=== PATIENT | female | born 1970 | race Caucasian/White ===

== ENCOUNTER → 2017-10-25 | Outpatient (CLI) | payer BC ==
--- NOTE | 2017-10-25 15:37 | MM ---
Reason for exam: additional evaluation requested from prior study. Last mammogram was performed 1 year and 8 months ago. Physical Findings: Nurse did not find any significant physical abnormalities on exam. MG Diagnostic Mammo w CAD FABRIZIO Bilateral CC and MLO view(s) were taken. Prior study comparison: February 11, 2016, bilateral MG screening mammo w CAD. December 16, 2014, bilateral MG screening mammo w CAD. The breast tissue is heterogeneously dense. This may lower the sensitivity of mammography. No suspicious abnormality. No significant new findings when compared with previous films. These results were verbally communicated with the patient and result sheet given to the patient on 10/25/17. ASSESSMENT: Negative, BI-RAD 1 RECOMMENDATION: Routine screening mammogram of both breasts in 1 year. Manage patient on a clinical basis.
--- NOTE | 2017-10-25 15:39 | USB ---
Reason for exam: clinical finding. US Breast RT Right complete breast ultrasound includes all four quadrants, the retroareolar region and axilla. Finding demonstrates no cystic or solid lesion seen. No suspicious sonographic finding. Dense tissue throughout. These results were verbally communicated with the patient and result sheet given to the patient on 10/25/17. ASSESSMENT: Negative, BI-RAD 1 RECOMMENDATION: Routine screening mammogram of both breasts in 1 year.
== END | disposition home or self-care (01) ==
LOC: RADMAMWWP 07:34
PROVIDERS: ATTEND Family Medicine
DX: N64.4 Mastodynia (principal)
CPT/HCPCS: 77066

== ENCOUNTER 2018-10-10 14:41 | Emergency (ER) | payer OTHER, BC ==
[2018-10-10] MEDS ORDERED: FAMOTIDINE 20 MG/2 ML VIAL IV STA (14:45)
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
[2018-10-10] MEDS: RACEPINEPHRINE 2.25% NEB 0.5 ML NEBU INHALATION STA ×2 (15:07→15:10)
[2018-10-10 15:14] VITALS: PULSE 65
[2018-10-10] MEDS ORDERED: SODIUM CHLORIDE 0.9% 1,000 ML IV ONE (15:26)
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
[2018-10-10 18:47] VITALS: BP 99/72; RESP 18
== END 2018-10-10 18:54 | disposition home or self-care (01) ==
LOC: EC 14:41
DX: T78.2XXA Anaphylactic shock, unspecified, initial encounter (principal); E06.3 Autoimmune thyroiditis; Z79.890 Hormone replacement therapy; Z79.3 Long term (current) use of hormonal contraceptives; Z91.030 Bee allergy status; Z88.8 Allergy status to other drugs, medicaments and biological substances; Z88.1 Allergy status to other antibiotic agents; Z88.2 Allergy status to sulfonamides
CPT/HCPCS: 71045; 93005; 94640; 96361; 96374; 99284

== ENCOUNTER → 2018-11-15 | Outpatient (CLI) | payer BC ==
--- NOTE | 2018-11-16 09:22 | MM ---
Reason for exam: screening (asymptomatic). Last mammogram was performed 1 year and 1 month ago. Physical Findings: A clinical breast exam by your physician is recommended on an annual basis and results should be correlated with mammographic findings. MG Screening Mammo w CAD Bilateral CC and MLO view(s) were taken. Prior study comparison: October 25, 2017, bilateral MG diagnostic mammo w CAD F[facility]IO. February 11, 2016, bilateral MG screening mammo w CAD. The breast tissue is heterogeneously dense. This may lower the sensitivity of mammography. There is no discrete abnormality. No significant changes when compared with prior studies. ASSESSMENT: Negative, BI-RAD 1 RECOMMENDATION: Routine screening mammogram of both breasts in 1 year.
== END | disposition home or self-care (01) ==
LOC: RADMAMWWP 07:48
PROVIDERS: ATTEND Family Medicine
DX: Z12.31 Encounter for screening mammogram for malignant neoplasm of breast (principal)
CPT/HCPCS: 77067

== ENCOUNTER 2019-03-09 05:41 | Emergency (ER) | payer BC ==
[2019-03-09 05:47] VITALS: RESP 18
[2019-03-09] MEDS ORDERED: SODIUM CHLORIDE 0.9% 1,000 ML IV STA ×2 (06:09)
[2019-03-09] MEDS ORDERED: ONDANSETRON 4 MG/2 ML VIAL IVP STA (06:18)
[2019-03-09] MEDS ORDERED: KETOROLAC 30 MG/ML 1 ML VIAL IVP STA (06:18)
[2019-03-09] MEDS ORDERED: HYDROmorphone 1 MG/ML 1 ML SYRINGE IVP STA (06:18)
[2019-03-09 06:21] LABS: Basophils % (A) 1 %; Eosinophils # (A) 0.1 k/uL (0-0.7); Eosinophils % (A) 1 %; HCT 37.4 % (34.0-46.0); HGB 12.6 gm/dL (11.4-16.0); Lymphocytes # (A) 1.6 k/uL (1.0-4.8); Lymphocytes % (A) 40 %; MCH 28.2 pg (25.0-35.0); MCHC 33.6 g/dL (31.0-37.0); Mean Platelet Volume 7.2; Monocytes # (A) 0.3 k/uL (0-1.0); Monocytes % (A) 7 %; Neutrophils # (A) 1.9 k/uL (1.3-7.7); Neutrophils % (A) 49 %; Platelet Count 205 k/uL (150-450); RBC 4.45 m/uL (3.80-5.40); RDW 12.5 % (11.5-15.5); WBC 3.9 k/uL (3.8-10.6)
[2019-03-09 06:22] LABS: Appearance,Urine Clear (Clear); Bacteria,Urine Occasional /hpf; Bilirubin,Urine Negative (Negative); Blood,Urine Trace (Negative); Color,Urine Yellow; Glucose,Urine (UA) Negative (Negative); Ketones,Urine Negative (Negative); Leukocyte Esterase,Urine Negative (Negative); Mucus,Urine Occasional /hpf; Nitrite,Urine Negative (Negative); PH, Urine 5.5 (5.0-8.0); Protein,Urine Negative (Negative); RBC,Urine 1 /hpf (0-5); Specific Gravity,Urine 1.013 (1.001-1.035); Squamous Epithelial Cell,Urine 2 /hpf (0-4); Urobilinogen,Urine <2.0 mg/dL (<2.0); WBC,Urine 3 /hpf (0-5)
--- NOTE | 2019-03-09 06:24 | ED ---
General Adult HPI - General Chief complaint: Nausea/Vomiting/Diarrhea Stated complaint: Abdominal pain Time Seen by Provider: 03/09/19 06:06 Source: patient, RN notes reviewed, old records reviewed Mode of arrival: ambulatory Limitations: no limitations - History of Present Illness Initial comments: Patient is a 48-year-old female presents for his reports today with diffuse abdominal pain. Patient reports that the symptoms started on Monday. She's had a few episodes of vomiting Monday night and . She reports chills. She's not had any Tylenol since Monday. She reports it seems to be a sharp stabbing pain. Patient denies any changes in urination or bowel habits. She reports that she feels that she clean the position. She has pain with stretching out or walking. Patient states that she has had 2 previous C- section. No other surgical history. - Related Data Home Medications Medication Instructions Recorded Confirmed Levothyroxine Sodium [Synthroid] 125 mcg PO SUMOTUTHFRSA 12/19/13 10/10/18 Cholecalciferol [Vitamin D3 (25 5,000 unit PO DAILY 10/10/18 10/10/18 Mcg = 1000 Iu)] EPINEPHrine [Epipen 2-Ricardo] 0.3 mg IM ONCE PRN 10/10/18 10/10/18 Levothyroxine Sodium [Synthroid] 187.5 mcg PO WE 10/10/18 10/10/18 Norethindrone-E.estradiol-Iron 1 tab PO DAILY 10/10/18 10/10/18 [Loestrin Fe 1.5-30 Tablet] Previous Rx's Medication Instructions Recorded EPINEPHrine (Auto Inject) [Epipen] 0.3 mg IM ONCE PRN #2 syringe 10/10/18 predniSONE 40 mg PO DAILY #8 tab 10/10/18 Ketorolac [Toradol] 10 mg PO TID #12 tab 03/09/19 Ondansetron Odt [Zofran Odt] 4 mg PO Q8HR PRN #12 tab 03/09/19 Allergies Allergy/AdvReac Type Severity Reaction Status Date / Time bee venom protein (honey bee) Allergy Anaphylaxis Verified 03/09/19 05:47 metoclopramide HCl Allergy TEMPORARY Verified 03/09/19 05:47 [From Reglan] PARALYSIS niacin Allergy TEMPORARY Verified 03/09/19 05:47 PARALYSIS nitrofurantoin Allergy Rash/Hives Verified 03/09/19 05:47 [From Macrobid] nitrofurantoin Allergy Rash/Hives Verified 03/09/19 05:47 macrocrystalline [From Macrobid] Sulfa (Sulfonamide Allergy Rash/Hives Verified 03/09/19 05:47 Antibiotics) septra ds Allergy Rash/Hives Uncoded 03/09/19 05:47 Review of Systems ROS Statement: Those systems with pertinent positive or pertinent negative responses have been documented in the HPI. ROS Other: All systems not noted in ROS Statement are negative. Past Medical History Past Medical History: Thyroid Disorder Additional Past Medical History / Comment(s): AUTOIMMUNE DISORDER, PARVEZ'S DISEASE,POS OCCULT STOOL, FREQ SOFT STOOLS, History of Any Multi-Drug Resistant Organisms: None Reported Past Surgical History: Section Past Anesthesia/Blood Transfusion Reactions: Motion Sickness Additional Past Anesthesia/Blood Transfusion Reaction / Comment(s): NEVER HAS HAD GENERAL ANESTHESIA Past Psychological History: No Psychological Hx Reported Smoking Status: Never smoker Past Alcohol Use History: Occasional Past Drug Use History: None Reported General Exam Limitations: no limitations General appearance: alert, in no apparent distress Head exam: Present: atraumatic, normocephalic, normal inspection Eye exam: Present: normal appearance, PERRL, EOMI. Absent: scleral icterus, conjunctival injection, periorbital swelling ENT exam: Present: normal exam, mucous membranes moist Neck exam: Present: normal inspection. Absent: tenderness, meningismus, lymphadenopathy Respiratory exam: Present: normal lung sounds bilaterally. Absent: respiratory distress, wheezes, rales, rhonchi, stridor Cardiovascular Exam: Present: regular rate, normal rhythm, normal heart sounds. Absent: systolic murmur, diastolic murmur, rubs, gallop, clicks GI/Abdominal exam: Present: soft, tenderness (epigastric and right sided tenderness), normal bowel sounds. Absent: distended, guarding, rebound, rigid Extremities exam: Present: normal inspection Back exam: Present: normal inspection Neurological exam: Present: alert, oriented X3, CN II-XII intact Psychiatric exam: Present: normal affect, normal mood Skin exam: Present: warm Course Vital Signs 03/09/19 05:45 Temperature 97.5 F L Pulse Rate 72 Respiratory 18 Rate Blood Pressure 122/90 O2 Sat by Pulse 97 Oximetry Medical Decision Making - Medical Decision Making 48-year-old female presents with abdominal pain, right-sided tenderness. Symptoms for the past 3-4 days. At this time patient's labwork was reviewed relatively unremarkable. She did have mildly elevated pink or symptoms of a lipase of 340. Patient was given IV fluids pain medicine and Zofran. Patient is reevaluated states that she's feeling better resting comfortably in bed. Patient's computed tomography scan did show some right-sided follicular changes to minimal fluid in the pelvis. Patient discussed possibility of ovarian cysts. I a discusses no other acute inflammatory changes and patient's CAT scan or blood work. Patient is resting in bed. Discussed that she can follow-up with primary care doctor. Discussed strict return parameters of the pain was worsening. - Lab Data Result diagrams: 03/09/19 05:57 03/09/19 05:57 Lab Results 03/09/19 03/09/19 03/09/19 Range/Units 05:57 05:57 06:00 WBC 3.9 (3.8-10.6) k/uL RBC 4.45 (3.80-5.40) m/uL Hgb 12.6 (11.4-16.0) gm/dL Hct 37.4 (34.0-46.0) % MCV 84.0 (80.0-100.0) fL MCH 28.2 (25.0-35.0) pg MCHC 33.6 (31.0-37.0) g/dL RDW 12.5 (11.5-15.5) % Plt Count 205 (150-450) k/uL Neutrophils % 49 % Lymphocytes % 40 % Monocytes % 7 % Eosinophils % 1 % Basophils % 1 % Neutrophils # 1.9 (1.3-7.7) k/uL Lymphocytes # 1.6 (1.0-4.8) k/uL Monocytes # 0.3 (0-1.0) k/uL Eosinophils # 0.1 (0-0.7) k/uL Basophils # 0.0 (0-0.2) k/uL Sodium 138 (137-145) mmol/L Potassium 4.7 (3.5-5.1) mmol/L Chloride 105 (98-107) mmol/L Carbon Dioxide 23 (22-30) mmol/L Anion Gap 10 mmol/L BUN 10 (7-17) mg/dL Creatinine 0.70 (0.52-1.04) mg/dL Est GFR (CKD-EPI)AfAm >90 (>60 ml/min/1.73 sqM) Est GFR (CKD-EPI)NonAf >90 (>60 ml/min/1.73 sqM) Glucose 98 (74-99) mg/dL Calcium 9.3 (8.4-10.2) mg/dL Total Bilirubin 0.6 (0.2-1.3) mg/dL AST 37 H (14-36) U/L ALT 17 (4-34) U/L Alkaline Phosphatase <20 L (38-126) U/L Total Protein 7.1 (6.3-8.2) g/dL Albumin 4.1 (3.5-5.0) g/dL Amylase 57 (30-110) U/L Lipase 345 H (23-300) U/L Urine Color Yellow Urine Appearance Clear (Clear) Urine pH 5.5 (5.0-8.0) Ur Specific [place] 1.013 (1.001-1.035) Urine Protein Negative (Negative) Urine Glucose (UA) Negative (Negative) Urine Ketones Negative (Negative) Urine Blood Trace H (Negative) Urine Nitrite Negative (Negative) Urine Bilirubin Negative (Negative) Urine Urobilinogen <2.0 (<2.0) mg/dL Ur Leukocyte Esterase Negative (Negative) Urine RBC 1 (0-5) /hpf Urine WBC 3 (0-5) /hpf Ur Squamous Epith Cells 2 (0-4) /hpf Urine Bacteria Occasional H (None) /hpf Urine Mucus Occasional H (None) /hpf - Radiology Data Radiology results: report reviewed CT abdomen and pelvis is no acute inflammatory normality. Failure to visualize the appendix. Follicular change in the ovaries within the recent ovulation of the right. General changes within the spine are noted. Disposition Clinical Impression: Abdominal pain, Follicular cyst of right ovary, Elevated lipase Disposition: HOME SELF-CARE Condition: Good Instructions (If sedation given, give patient instructions): Abdominal Pain (ED) Additional Instructions: Patient advised a prompt follow-up with your primary care physician. Take the medications as prescribed. If there is any worsening signs or symptoms including fever or worsening pain because return for reevaluation. Prescriptions: Ketorolac [Toradol] 10 mg PO TID #12 tab Ondansetron Odt [Zofran Odt] 4 mg PO Q8HR PRN #12 tab PRN Reason: Nausea Is patient prescribed a controlled substance at d/c from ED?: No Referrals: Stephon Singletary DO [Primary Care Provider] - 1-2 days Time of Disposition: 09:33
[2019-03-09 06:35] LABS: African American GFR (CKD) >90 (>60 ml/min/1.73 sqM); Albumin 4.1 g/dL (3.5-5.0); Amylase 57 U/L (30-110); Anion Gap 10 mmol/L; Blood Urea Nitrogen 10 mg/dL (7-17); Calcium 9.3 mg/dL (8.4-10.2); Carbon Dioxide 23 mmol/L (22-30); Chloride 105 mmol/L (98-107); Glucose 98 mg/dL (74-99); Non-African American GFR(CKD) >90 (>60 ml/min/1.73 sqM); Sodium 138 mmol/L (137-145); Total Bilirubin 0.6 mg/dL (0.2-1.3); Total Protein 7.1 g/dL (6.3-8.2)
[2019-03-09 06:43] LABS: AST 37 U/L (14-36); Potassium 4.7 mmol/L (3.5-5.1)
[2019-03-09 06:44] LABS: ALT 17 U/L (4-34)
[2019-03-09 06:53] LABS: Alkaline Phosphatase <20 U/L (38-126)
--- NOTE | 2019-03-09 08:12 | CT ---
EXAMINATION TYPE: CT abdomen pelvis w con DATE OF EXAM: 03/09/2019 REFERENCE: NONE HISTORY: Right abdominal pain HISTORY: Abdominal pain and vomiting CT DLP: 1139.2 mGy Automated exposure control for dose reduction was used. TECHNIQUE: Helical acquisition through the abdomen and pelvis was obtained following the oral ingesti on of without Oral Contrast and following intravenous administration of 100 mL of Isovue 300. The kelvin a was reformatted in axial, coronal and sagittal projections. FINDINGS: There is minimal dependent atelectasis at the lung bases. There is no pleural or pericardi al fluid. The heart is not enlarged. Within the abdomen, the liver, spleen and gallbladder are normal. The pancreas is unremarkable. Both adrenal glands are normal. Both kidneys demonstrate function and appear morphologically normal. There is no significant retroperitoneal, iliac or inguinal adenopathy. The bladder is unremarkable. The uterus appears normal. There is follicular change in both ovaries with evidence of recent ovulati on on the right. There is no significant diverticular change and there is no radiographic evidence of diverticulitis. The appendix is not visualized with certainty. Small bowel caliber is normal. There is a scant amount of free fluid in the pelvis. There is no evidence of free air. There is moderate facet arthropathy in the lower lumbar spine. There is some hypertrophic spondylosis anteriorly at L2-3. IMPRESSION: 1. NO ACUTE INFLAMMATORY ABNORMALITY. 2. FAILURE TO VISUALIZE THE APPENDIX. 3. FOLLICULAR CHANGE IN THE OVARIES WITH EVIDENCE OF RECENT OVULATION ON THE RIGHT. 4. DEGENERATIVE CHANGES WITHIN THE SPINE.
[2019-03-09 10:32] VITALS: BP 141/76; PULSE 76; TEMP 97.9
== END 2019-03-09 10:31 | disposition home or self-care (01) ==
LOC: EC 05:41
DX: N83.01 Follicular cyst of right ovary (principal); R74.8 Abnormal levels of other serum enzymes; R10.84 Generalized abdominal pain; R68.83 Chills (without fever); E06.3 Autoimmune thyroiditis; Z88.1 Allergy status to other antibiotic agents; Z88.2 Allergy status to sulfonamides; Z88.8 Allergy status to other drugs, medicaments and biological substances; Z91.030 Bee allergy status; Z79.3 Long term (current) use of hormonal contraceptives; Z79.890 Hormone replacement therapy; Z53.8 Procedure and treatment not carried out for other reasons
CPT/HCPCS: 36415; 80053; 82150; 83690; 85025; 81001; 74177; 99285; 96374; 96375 ×2; 96361 ×4; J2405; J1885; J1170; Q9967

== ENCOUNTER → 2019-12-13 | Outpatient (CLI) | payer BC ==
--- NOTE | 2019-12-17 11:12 | MM ---
Reason for exam: screening (asymptomatic). Last mammogram was performed 1 year and 1 month ago. Physical Findings: A clinical breast exam by your physician is recommended on an annual basis and results should be correlated with mammographic findings. MG Screening Mammo w CAD Bilateral CC and MLO view(s) were taken. Prior study comparison: November 15, 2018, bilateral MG screening mammo w CAD. October 25, 2017, bilateral MG diagnostic mammo w CAD F[facility]IO. The breast tissue is heterogeneously dense. This may lower the sensitivity of mammography. No significant changes when compared with prior studies. ASSESSMENT: Negative, BI-RAD 1 RECOMMENDATION: Routine screening mammogram of both breasts in 1 year.
== END | disposition home or self-care (01) ==
LOC: RADMAMWWP 15:27
PROVIDERS: ATTEND Family Medicine
DX: Z12.31 Encounter for screening mammogram for malignant neoplasm of breast (principal)
CPT/HCPCS: 77067

== ENCOUNTER → 2020-05-26 | Outpatient (CLI) | payer BC ==
--- NOTE | 2020-05-26 09:57 | USB ---
Reason for exam: clinical finding. Physical Findings: Nurse Summary: patient denies concerns today. Bilateral upper outer quadrant thickening, slightly more pronounced right upper outer quadrant (nurse TM). US Breast RT Right complete breast ultrasound includes all four quadrants, the retroareolar region and axilla. Finding demonstrates no cystic or solid lesion seen. These results were verbally communicated with the patient and result sheet given to the patient on 05/26/20. ASSESSMENT: Negative, BI-RAD 1 RECOMMENDATION: Return to routine screening mammogram schedule for both breasts. Back on schedule. Manage patient on a clinical basis.
== END ==
LOC: RADUSWWP 07:36
PROVIDERS: ATTEND Family Medicine
DX: N64.89 Other specified disorders of breast (principal)

== ENCOUNTER → 2020-07-30 | Outpatient (CLI) | payer OTHER ==
--- NOTE | 2020-07-30 17:55 | XR ---
EXAMINATION TYPE: XR hand complete LT DATE OF EXAM: 07/30/2020 COMPARISON: NONE HISTORY: Injury and pain TECHNIQUE: 3 views FINDINGS: Metacarpals are intact. I see no fracture nor dislocation. There are no erosions. There is no subluxation. IMPRESSION: Negative left hand exam. No fracture.
== END | disposition home or self-care (01) ==
LOC: RADXRMAIN 16:57
PROVIDERS: ATTEND Emergency Medicine
DX: S69.92XA Unspecified injury of left wrist, hand and finger(s), initial encounter (principal)

== ENCOUNTER → 2020-12-29 | Outpatient (CLI) | payer BC ==
--- NOTE | 2020-12-30 08:26 | XR ---
EXAMINATION TYPE: XR knee complete LT DATE OF EXAM: 12/29/2020 COMPARISON: NONE HISTORY: Pain TECHNIQUE: Three views are submitted. FINDINGS: Joint spaces are preserved. Osseous structures are intact. No acute fracture seen. There is a supr apatellar bursal fluid collection. IMPRESSION: 1. Small suprapatellar bursal fluid collection. Correlate with MRI as clinically warranted.
== END | disposition home or self-care (01) ==
LOC: RADXRMAIN 15:42
PROVIDERS: ATTEND Nurse Practitioner Family
DX: M22.8X2 Other disorders of patella, left knee (principal)

== ENCOUNTER → 2021-01-27 | Outpatient (CLI) | payer BC ==
--- NOTE | 2021-01-27 21:03 | MR ---
EXAMINATION TYPE: MR knee LT wo con DATE OF EXAM: 01/27/2021 COMPARISON: Left knee x-ray December 29, 2020 HISTORY: Left knee pain and swelling since December 21. TECHNIQUE: Multiplanar, multisequence imaging of the left knee is performed without IV contrast. FINDINGS: MEDIAL MENISCUS: Anterior and posterior horns are intact without tear. LATERAL MENISCUS: Anterior and posterior horns are intact without tear. CRUCIATE LIGAMENTS: The anterior and posterior cruciate ligaments are intact and unremarkable. COLLATERAL LIGAMENTS: The medial collateral ligament and lateral collateral ligament complex are inta ct and unremarkable. EXTENSOR MECHANISM: Visualized quadriceps and patellar tendons are intact. EFFUSION: No significant suprapatellar joint effusion. POPLITEAL CYST: No popliteal/encinas cyst. TRICOMPARTMENT SPACES: Tricompartment joint spaces are maintained. No significant spurring is seen. CARTILAGE: Tricompartmental articular cartilage is preserved. BONE MARROW SIGNAL: No focal abnormal marrow signal is appreciated. OTHER: No additional significant abnormality is appreciated. IMPRESSION: No meniscal or ligamentous tear is seen. Unremarkable study.
== END | disposition home or self-care (01) ==
LOC: RADMRIMAIN 19:53
PROVIDERS: ATTEND Orthopaedic Surgery
DX: M25.562 Pain in left knee (principal)

== ENCOUNTER → 2021-10-08 | Outpatient (CLI) | payer BC ==
--- NOTE | 2021-10-08 17:55 | XR ---
EXAMINATION TYPE: XR calcaneus 2V LT DATE OF EXAM: 10/08/2021 COMPARISON: NONE HISTORY: Pain TECHNIQUE: 2 views of the left os calcis are submitted. FINDINGS: Small plantar calcaneal spur and tiny developing dorsal calcaneal spur noted. No fracture o r dislocation. No osseous lesions seen. IMPRESSION: 1. No evidence for acute fracture.
== END | disposition home or self-care (01) ==
LOC: RADXRMAIN 16:35
PROVIDERS: ATTEND Family Medicine
DX: M79.672 Pain in left foot (principal)

== ENCOUNTER 2022-04-13 09:52 | Day surgery (SDC) | payer BC ==
[2022-04-11 14:51] VITALS: BMI 28.8
[~2022-04-13 09:52] MED LIST: LACTATED RINGERS 1,000 ML IV SCH; LIDOCAINE 1% (10MG/ML) FOR IV START INTRADERMA PRN
[2022-04-13 10:32] VITALS: RESP 16; TEMP 97
[2022-04-13] MEDS ORDERED: PROPOFOL 10 MG/ML 20 ML VIAL IV ONE (11:16)
--- NOTE | 2022-04-13 11:48 | P.PCN ---
Date of Procedure: 04/13/22 Procedure(s) Performed: BRIEF HISTORY: Patient is a 51-year-old pleasant white female scheduled for an elective colonoscopy as a part of evaluation of lower abdominal pain and change in bowel habits for the last 3 months duration. She also complains of rectal pain and possible external hemorrhoids. PROCEDURE PERFORMED: Colonoscopy with random biopsy PREOPERATIVE DIAGNOSIS: Intermittent lower abdominal pain and change in bowel habits since December 2021. IV sedation per Anesthesia. PROCEDURE: After informed consent was obtained, the patient, was brought into the endoscopy unit. IV sedation was administered by Anesthesia under continuous monitoring. Digital rectal examination was normal. No external hemorrhoids noted. Initially the Olympus CF-160 flexible video colonoscope was then inserted in the rectum, gradually advanced into the cecum without any difficulty. Careful examination was performed as the scope was gradually being withdrawn. Ileocecal valve and the appendiceal orifice were visualized and appeared normal. Prep was excellent. The ileum was intubated and 20 cm visualized and appeared normal. Mucosa of the cecum, ascending colon, transverse colon, descending colon, sigmoid colon, and rectum appeared normal. Random biopsies were done from ascending and descending colon to rule out microscopic/collagenous colitis. Retroflexion was performed in the rectum and small internal hemorrhoids were seen. The patient tolerated the procedure well. IMPRESSION: Normal-appearing colon from rectum to cecum no evidence of colorectal neoplasia . Small internal hemorrhoids Normal-appearing terminal ileum RECOMMENDATIONS: Findings of this examination were discussed with the patient as well as a family. She was advised to follow with the biopsy results. Recommended repeat screening colonoscopy in 10 years..
[2022-04-13 12:05] VITALS: BP 137/86; PULSE 59
== END 2022-04-13 12:45 | disposition home or self-care (01) ==
LOC: ORWHC2ENDO 09:52
PROVIDERS: ATTEND Internal Medicine Gastroenterology
DX: K64.8 Other hemorrhoids (principal); E07.9 Disorder of thyroid, unspecified; Z79.890 Hormone replacement therapy; Z79.899 Other long term (current) drug therapy; Z98.891 History of uterine scar from previous surgery; Z88.2 Allergy status to sulfonamides; Z88.8 Allergy status to other drugs, medicaments and biological substances
CPT/HCPCS: 81025; 45380; J2704; 88305

== ENCOUNTER → 2022-11-21 | Outpatient (CLI) | payer BC ==
[2022-11-21 16:07] LABS: Chol/HDL Ratio 5.87 Ratio; Glucose 95 mg/dL (70-110); LDL Cholesterol,Calculated 145.9 mg/dL (0.0-131.0); T4, Free (Free Thyroxine) 1.82 ng/dL (0.80-1.80)
--- NOTE | 2022-11-22 10:44 | MM ---
Reason for Exam: Screening (asymptomatic). Last mammogram was performed 2 year(s) and 11 month(s) ago. Patient History: Menarche at age 12. First Full-Term at age 26. Patient has history of breast feeding. Risk Values: Yaneth 5 year model risk: 1.2%. NCI Lifetime model risk: 9.4%. Prior Study Comparison: 10/25/2017 Bilateral Diagnostic Mammogram, [facility]. 11/15/2018 Bilateral Screening Mammogram, [facility]. 12/13/2019 Bilateral Screening Mammogram, [facility]. Tissue Density: The breast tissue is heterogeneously dense. This may lower the sensitivity of mammography. Findings: Analyzed By CAD. There is no suspicious group of microcalcifications or new suspicious mass in either breast. Overall Assessment: Negative, BI-RAD 1 Management: Screening Mammogram of both breasts in [address] [facility] will attempt to contact patient to return for supplemental views and ultrasound if indicated. Patient should continue monthly self-breast exams. A clinical breast exam by your physician is recommended on an annual basis. This exam should not preclude additional follow-up of suspicious palpable abnormalities. Note on Yaneth scores and lifetime risk: 1. A Yaneth score greater than 3% is considered moderate risk. If this is the case, consider specialist referral to assess eligibility for a risk reducing agent. 2. If overall lifetime risk for the development of breast cancer is 20% or higher, the patient may qualify for future screening with alternating mammogram and breast MRI. Electronically signed and approved by: Brandt Palmer DO
== END | disposition home or self-care (01) ==
LOC: RADMAMWWP 07:24
PROVIDERS: ATTEND Family Medicine
DX: Z12.31 Encounter for screening mammogram for malignant neoplasm of breast (principal); Z00.00 Encounter for general adult medical examination without abnormal findings
CPT/HCPCS: 77067; 80061; 82947; 84439; 84443

== ENCOUNTER → 2023-11-23 | Outpatient (CLI) | payer BC ==
--- NOTE | 2023-11-24 09:59 | MM ---
Reason for Exam: Screening (asymptomatic). Last screening mammogram was performed 12 month(s) ago. Patient History: Menarche at age 12. First Full-Term at age 26. Patient has history of breast feeding. Currently using Hormonal Contraceptives, for 12 years. Risk Values: Yaneth 5 year model risk: 1.3%. NCI Lifetime model risk: 9.3%. Prior Study Comparison: 11/15/2018 Bilateral Screening Mammogram, [facility]. 12/13/2019 Bilateral Screening Mammogram, [facility]. 11/21/2022 Bilateral MG screening mammo w CAD, [facility]. Tissue Density: The breasts are heterogeneously dense, which may obscure small masses. Findings: Analyzed By CAD. Right breast: There is no suspicious group of microcalcifications or new suspicious mass. Left breast: There is no suspicious group of microcalcifications or new suspicious mass. Overall Assessment: Negative, BI-RAD 1 Management: Screening Mammogram of both breasts in [address] [facility] will attempt to contact patient to return for supplemental views and ultrasound if indicated. Patient should continue monthly self-breast exams. A clinical breast exam by your physician is recommended on an annual basis. This exam should not preclude additional follow-up of suspicious palpable abnormalities. Note on Yaneth scores and lifetime risk: 1. A Yaneth score greater than 3% is considered moderate risk. If this is the case, consider specialist referral to assess eligibility for a risk reducing agent. 2. If overall lifetime risk for the development of breast cancer is 20% or higher, the patient may qualify for future screening with alternating mammogram and breast MRI. Electronically signed and approved by: Brandt Palmer DO
== END | disposition home or self-care (01) ==
LOC: RADMAMWWP 07:18
PROVIDERS: ATTEND Family Medicine
DX: Z12.31 Encounter for screening mammogram for malignant neoplasm of breast (principal); R92.333 Mammographic heterogeneous density, bilateral breasts
CPT/HCPCS: 77067

== ENCOUNTER → 2024-06-26 | Outpatient (CLI) | payer BC ==
--- NOTE | 2024-06-26 15:36 | US ---
EXAMINATION TYPE: US thyroid st tissue head/neck DATE OF EXAM: 06/26/2024 COMPARISON: NONE CLINICAL INDICATION: Female, 53 years old with history of E04.1 SINGLE THYROID NODULE; TECHNIQUE: Grayscale and color Doppler imaging of the thyroid gland. FINDINGS: Chief Customer Officer notes: Slightly limited scan, pt was experiencing vertigo and could not lay completely fl at GLAND SIZE: Right Lobe: 2.8x0.6x1.2cm Overall Parenchyma: heterogeneous Left Lobe: 3.3x0.7x1.2cm Overall Parenchyma: heterogeneous Isthmus Thickness: 0.3cm NODULES RIGHT: # of nodules measured on right: 0 LEFT: # of nodules measured on left: 0 ISTHMUS: # of nodules measured in the isthmus: 0 Bilateral neck scanned, no evidence of lymphadenopathy. IMPRESSION: Heterogeneous and small thyroid gland. Correlate for chronic hypothyroidism. No discrete nodule seen. [facility], Workstation: [email or web address], 06/26/2024 3:33 PM
== END | disposition home or self-care (01) ==
LOC: RADUSWWP 14:21
PROVIDERS: ATTEND Family Medicine
DX: E04.1 Nontoxic single thyroid nodule (principal)
CPT/HCPCS: 76536